=== PATIENT | male | born 1980 | race Caucasian/White ===

== ENCOUNTER → 2017-09-01 16:12 | Outpatient (CLI) | payer OTHER, SELFPAY ==
[2017-09-01 17:30] LABS: Absolute Lymphocyte Count 0.92 X10^3/ul (0.83-4.51); Absolute Neutrophil Count 18.9 X10^3/uL (2.0-7.7); Basophil# 0.03 X10^3/uL; Basophil% 0.1 % (0-1); Eosinophil# 0.01 X10^3/uL; Hematocrit 45.4 % (40-54); Hemoglobin 15.4 g/dl (13.0-16.5); Lymphocyte # 0.92 X10^3/ul (4.0); Lymphocyte % 4.4 % (19-41); Mean Corp Hgb Conc 33.9 g/gl (32-36); Mean Corpuscular Hgb 30.7 pg (27.0-32.0); Mean Corpuscular Volume 90.4 fL (80-94); Mean Platelet Vol. 9.9 fl (6.2-12.0); Monocyte% 5.7 % (0-10); Neutrophil # 18.89 X10^3/uL (2.7-7.7); Neutrophil % 89.5 % (47-70); Platelet Count 354 K/mm3 (150-450); RBC Distribution Width CV 14.1 % (11.6-14.6); RBC Distribution Width SD 46.2 fl (35.1-43.9); Red Blood Count 5.02 M/mm3 (4.6-6.2); White Blood Count 21.1 K/mm3 (4.4-11.0)
[2017-09-01 17:33] LABS: POSITIVE COUNT NO; POSITIVE DIFFERENTIAL NO; POSITIVE MORPHOLOGY NO
[2017-09-01 17:42] LABS: AST(SGOT) 16 U/L (15-37); Alanine Aminotransfer ALT/SGPT 27 U/L (16-61); Albumin, Serum 3.8 g/dL (3.2-5.0); Alkaline Phosphatase 74 U/L (45-117); Anion Gap 10 (5-15); BUN 14 mg/dL (7-18); BUN/Creat Ratio 10.9 RATIO (10-20); Calcium,Total 8.6 mg/dL (8.5-10.1); Chloride 104 mmol/L (98-107); Creatinine, Serum 1.28 mg/dL (0.70-1.30); EST Glomerular Filtration Rate 67 mL/min (>60); Est Glom Filt Rate - Afr Amer 81 mL/min (>60); Globulin 3.7 g/dL (2.2-4.2); Glucose 289 mg/dL (74-106); Potassium 4.4 mmol/L (3.5-5.1); Protein, Total 7.5 g/dL (6.4-8.2); Sodium Level 139 mmol/L (136-145)
== END ==
PROVIDERS: Family Provider Family Medicine; PCP Family Medicine; Visit Provider Family Medicine
DX: K52.9 Noninfective gastroenteritis and colitis, unspecified (principal)
CPT/HCPCS: 36415; 80053; 85025

== ENCOUNTER → 2017-09-11 09:48 | Outpatient (CLI) | payer OTHER, SELFPAY ==
[2017-09-11 12:31] LABS: Absolute Neutrophil Count 7.1 X10^3/uL (2.0-7.7); Basophil# 0.04 X10^3/uL; Basophil% 0.4 % (0-1); Eosinophil# 0.13 X10^3/uL; Eosinophils% 1.3 % (0-5); Hematocrit 44.3 % (40-54); Hemoglobin 14.7 g/dl (13.0-16.5); Lymphocyte % 17.4 % (19-41); Mean Corp Hgb Conc 33.2 g/gl (32-36); Mean Corpuscular Volume 90.4 fL (80-94); Mean Platelet Vol. 9.5 fl (6.2-12.0); Monocyte# 0.77 X10^3/uL; Monocyte% 7.9 % (0-10); Neutrophil # 7.05 X10^3/uL (2.7-7.7); Neutrophil % 72.4 % (47-70); Platelet Count 358 K/mm3 (150-450); RBC Distribution Width CV 14.4 % (11.6-14.6); RBC Distribution Width SD 47.3 fl (35.1-43.9); White Blood Count 9.8 K/mm3 (4.4-11.0)
[2017-09-11 12:32] LABS: POSITIVE COUNT NO; POSITIVE DIFFERENTIAL NO; POSITIVE MORPHOLOGY NO
[2017-09-11 12:55] LABS: Thyroid Stim Hormone (TSH) 1.65 uIU/mL (0.358-3.74)
== END ==
PROVIDERS: Family Provider Family Medicine; PCP Family Medicine; Visit Provider Family Medicine
DX: R00.0 Tachycardia, unspecified (principal); D72.829 Elevated white blood cell count, unspecified
CPT/HCPCS: 36415; 84443; 85025

== ENCOUNTER 2019-03-11 09:38 | Emergency (ER) | payer MEDICARE, SELFPAY ==
[2019-03-11 09:39] VITALS: BP 160/89; PULSE 100; RESP 17; TEMP 36.4; O2SAT 98; BMI 34.7
--- NOTE | 2019-03-11 10:06 | RAD_ITS ---
STUDY: X-RAY CHEST REASON FOR EXAM: Male, 38 years old. Each cough. TECHNIQUE: Frontal and lateral views of the chest. COMPARISON: October 02, 2016 FINDINGS: The lungs are clear and expanded. There is no demonstrated pleural abnormality. Normal size heart. Normal mediastinum and tamara. Normal visualized pulmonary arteries. Normal visualized aortic arch and descending thoracic aorta. Normal visualized thoracic spine. Normal visualized ribs, clavicles, and shoulders. There is no demonstrated abnormality of the visualized soft tissue structures of the upper abdomen. RAD/Chest PA and Lateral IMPRESSION: No interval change and no acute finding. Electronically Signed: Valeriano Marin MD at 11:22 EDT , Service support ,
--- NOTE | 2019-03-11 10:06 | ED.DCSUM_ITS ---
History of Present Illness Chief Complaint: Abd Pain Informant: Patient Onset: Days - 3-4 Context: Gradual Onset Timing: Continuous Quality: sore Location: inguinal creases Current Severity: Mild Maximum Severity: Mild Worsened by: palpation Relieved by: nothing; spreading antibiotic ointment Associated Symptoms: fever today, 101 Narrative: Patient is a well-controlled type I diabetic, whose A1c is consistently less than 6%. He states his sugars have been well controlled while this is been going on, started with dry skin in his inguinal creases, followed by the skin splitting and creating minor sores. He was spreading ointment on them to try to prevent infection. He has had a couple of small pustular or papular lesions on his medial buttocks, but no perineal pain. He has had some perianal discomfort. No pain with having bowel movements, but is sore to wipe in the surrounding area. He became concerned when he developed a fever this morning. He denies having any abdominal or pelvic pain, he has a mild nonproductive cough without dyspnea. He has no other medical problems. - Past Medical History (1) Type 1 diabetes mellitus Status: Chronic Past Medical History - Allergies and Home Meds Allergies/Adverse Reactions: Allergies No Known Allergies Allergy (Verified 03/11/19 09:39) Primary Care Physician: Baryan Ferrer MD [Primary Care Provider] - Lives: Spouse/ Significant Other Smoking Status: Unknown if ever smoked Drugs: None Review of Systems General: Reports: Fever, Malaise. Denies: Chills, Sweats Eyes: Denies: Visual changes - bilaterally, Diplopia ENT: Denies: Rhinorrhea, Sore throat Cardiovascular: Denies: Chest pain, Palpitations Respiratory: Denies: Dyspnea, Cough, Dyspnea on exertion Gastrointestinal: Denies: Abdominal pain, Nausea, Vomiting, Diarrhea, Melena, Hematochezia Genitourinary: Denies: Dysuria, Hematuria, Frequency Musculoskeletal: Denies: Back pain, Extremity Pain Skin: Reports: Rash, Wounds Neurological: Denies: Headache, Weakness, Numbness Physical Exam Vital Signs/Narrative: Vital Signs Temp Pulse Resp BP Pulse Ox 03/11/19 09:39 97.5 F L 100 17 160/89 H 98 Inital Vital Signs reviewed: Yes General: Well nourished, Well developed, No Acute Distress - Well-appearing, c onversive, pleasant Head: Normocephalic, Atraumatic Eyes: Perrl, EOMI ENT: Moist mucous membranes, No rhinorrhea Neck: Supple, Nontender Cardiovascular: Regular rate, Regular rhythm, No murmurs. Negative for: Tachycardia Respiratory: No distress, CTA bilaterally, Chest nontender Abdomen: Soft, Nontender, Nondistended, Normal bowel sounds : - - Normal nontender scrotum and perineum without subcutaneous emphysema, erythema, tenderness Back: Nontender, Normal Inspection Extremities: Nontender, No edema Skin: Normal color, Rash - Erythematous mildly tender rash with satellite lesions in the perianal area, with approximately 4-5 cm radius. Dry skin in bilateral inguinal creases with several small open ulcerations/sores, no purulent discharge or erythema. Neurological: Alert, Oriented x3, Cranial nerves II-XII grossly intact, Normal Strength, Normal Sensation Psychological: Normal affect, Normal Mood Diagnostic/Tx/Re-eval Impressions Chest X-Ray 03/11/19 10:06 IMPRESSION: No interval change and no acute finding. Electronically Signed: Valeriano Marin MD at 11:22 EDT , Service support , 03/11/19 10:06 Chest PA and Lateral [RAD] Stat Laboratory Results 03/11/19 03/11/19 03/11/19 10:13 10:20 10:20 WBC 13.5 H RBC 4.59 L Hgb 14.0 Hct 42.6 MCV 92.8 MCH 30.5 MCHC 32.9 RDW Std Deviation 44.4 H RDW Coeff of Fatmata 13.0 Plt Count 280 MPV 8.8 Immature Gran % (Auto) 0.400 Neut % (Auto) 79.9 H Lymph % (Auto) 8.8 L [place] % (Auto) 9.4 Eos % (Auto) 1.1 Baso % (Auto) 0.4 Absolute Neuts (auto) 10.8 H Absolute Lymphs (auto) 1.18 Nucleated RBC % 0 Sodium 141 Potassium 3.8 Chloride 109 H Carbon Dioxide 28.0 Anion Gap 4 L BUN 10 Creatinine 0.98 Estim Creat Clear Calc 102.20 Est GFR (MDRD) Af Amer 110 Est GFR (MDRD) Non-Af 91 BUN/Creatinine Ratio 10.2 Glucose 126 H Calcium 8.6 Urine Color Yellow Urine Clarity Clear Urine pH 6.0 Ur Specific Rodney 1.010 Urine Protein Negative Urine Glucose (UA) Normal Urine Ketones Negative Urine Occult Blood Negative Urine Nitrite Negative Urine Bilirubin Negative Urine Urobilinogen Normal Ur Leukocyte Esterase Negative Urine RBC 0 SEEN Urine WBC 0 SEEN Ur Squamous Epith Cells 0 SEEN Urine Bacteria 0 SEEN Urine Mucus 0 SEEN - Medical Decision Making Chest x-ray unremarkable, mild leukocytosis but labs are otherwise unremarkable. Given his exam, all of these lesions appeared to be superficial on the skin. There is no findings of Don's here, there is no scrotal involvement or abnormality. His abdomen is very benign and he has no intra-abdominal or rectal symptoms so I do not think he needs a CT or advanced imaging of any sort at this time. However, although he does appear to have candidiasis around the perianal area, this should not be enough to cause fevers. He was given a dose of empiric vancomycin given that he is a diabetic and may be developing some type of bacterial skin infection, and will be prescribed oral Keflex in addition to topical yeast treatment. I encouraged outpatient follow-up but I think he is stable for discharge home, he is well-appearing and comfortable with that plan. ED Disposition - Plan for ED Patient: Disposition: Home or Assisted Living Diagnosis: Skin ulcer of groin, Perianal candidiasis, Type 1 diabetes mellitus Instructions: RASHMI SKIN INFECTION (Adult) Prescriptions: Clotrimazole [Antifungal] 1 applicatio TP BID PRN 14 Days #1 cream..g. PRN Reason: Rash/Topical Irritation Prescription Printed Cephalexin [Keflex] 500 mg PO Q8 #30 cap Prescription Printed Referrals: Brayan Ferrer MD [Primary Care Provider] - 3-5 Days Additional Instructions: Also apply antibiotic ointment to superficially open areas in your groins bilaterally.
[2019-03-11 10:18] LABS: Bacteria 0 SEEN /hpf (None Seen); Mucous, Urine 0 SEEN /hpf (<or=2+); Red Blood Cells-Urine 0 SEEN /hpf (0-5); Squamous Epithelial Cells - UA 0 SEEN /hpf (0-5); White Blood Cells 0 SEEN /hpf (0-5)
[2019-03-11 10:20] LABS: Color, Urine Yellow (Yellow); Glucose, Dipstick Normal (Normal); Ketone-Dipstick Negative (Negative); Leukocyte Esterase-Dipstick Negative /ul (Negative); Nitrite-Dipstick Negative (Negative); Occult Blood-Urine Negative /ul (Negative); Protein-Dipstick Negative (Negative); Urine Bilirubin Dipstick Negative (Negative); Urine Clarity Clear (Clear); Urine Urobilinogen Normal (Normal)
[2019-03-11 10:40] LABS: Absolute Lymphocyte Count 1.18 X10^3/uL (0.83-4.51); Absolute Neutrophil Count 10.8 X10^3/uL (2.0-7.7); Basophil# 0.05 X10^3/uL; Basophil% 0.4 % (0-1); Eosinophil# 0.15 X10^3/uL; Eosinophils% 1.1 % (0-5); Hematocrit 42.6 % (40-54); Lymphocyte # 1.18 X10^3/ul (4.0); Lymphocyte % 8.8 % (19-41); Mean Corp Hgb Conc 32.9 g/dL (32-36); Mean Corpuscular Hgb 30.5 pg (27.0-32.0); Mean Corpuscular Volume 92.8 fL (80-94); Mean Platelet Vol. 8.8 fl (6.2-12.0); Monocyte# 1.27 X10^3/uL; Monocyte% 9.4 % (0-10); NRBC Flagged by Analyzer 0 % (0-5); Neutrophil # 10.76 X10^3/uL (2.7-7.7); Neutrophil % 79.9 % (47-70); Platelet Count 280 K/mm3 (150-450); RBC Distribution Width SD 44.4 fl (35.1-43.9); Red Blood Count 4.59 M/mm3 (4.6-6.2); White Blood Count 13.5 K/mm3 (4.4-11.0)
[2019-03-11 10:54] LABS: Anion Gap 4 (5-15); BUN 10 mg/dL (7-18); BUN/Creat Ratio 10.2 RATIO (10-20); Calcium,Total 8.6 mg/dL (8.5-10.1); Chloride 109 mmol/L (98-107); Creatinine, Serum 0.98 mg/dL (0.70-1.30); EST Glomerular Filtration Rate 91 mL/min (>60); Est Glom Filt Rate - Afr Amer 110 mL/min (>60); Glucose 126 mg/dL (74-106); Potassium 3.8 mmol/L (3.5-5.1); Sodium Level 141 mmol/L (136-145)
[2019-03-11 13:47] VITALS: BP 129/84; PULSE 81; RESP 16; O2SAT 100
[2019-03-11 15:26] VITALS: BP 128/78; PULSE 87; RESP 15; O2SAT 98
== END 2019-03-11 15:30 | disposition home or self-care (01) ==
PROVIDERS: Emergency Provider Emergency Medicine; Family Provider Family Medicine; PCP Family Medicine
DX: L98.499 Non-pressure chronic ulcer of skin of other sites with unspecified severity (principal); B37.89 Other sites of candidiasis; E10.9 Type 1 diabetes mellitus without complications; Z79.4 Long term (current) use of insulin
CPT/HCPCS: 71046; 80048; 81001; 85025; 87040; 96365; 96366; 99285; J7030; J7040; J7050; A4216

== ENCOUNTER → 2019-07-19 08:09 | Outpatient (CLI) | payer OTHER, SELFPAY ==
[2019-07-19 11:06] LABS: Anion Gap 5 (5-15); BUN 19 mg/dL (7-18); BUN/Creat Ratio 18.6 RATIO (10-20); Chloride 109 mmol/L (98-107); Cholesterol 157 mg/dL (200); Creatinine, Serum 1.02 mg/dL (0.70-1.30); EST Glomerular Filtration Rate 86 mL/min (>60); Est Glom Filt Rate - Afr Amer 104 mL/min (>60); Glucose 154 mg/dL (74-106); High Density Lipoprotein 42 mg/dL; Potassium 3.7 mmol/L (3.5-5.1); Sodium Level 140 mmol/L (136-145); Triglycerides 110 mg/dL; Very Low Density Lipoprotein 22 mg/dL (5-40); Vitamin D,25 Hydroxy 16.1 ng/mL (29.95-100.01)
[2019-07-19 11:41] LABS: Microalbumin,Random Urine 5.2 mg/L (NO RANGE EST.)
== END ==
PROVIDERS: Family Provider Family Medicine; PCP Family Medicine; Referring Provider Family Medicine; Visit Provider Family Medicine
DX: Z00.00 Encounter for general adult medical examination without abnormal findings (principal)
CPT/HCPCS: 36415; 80048; 80061; 82043; 82306; 82570

== ENCOUNTER → 2020-07-30 08:29 | Outpatient (CLI) | payer BC, SELFPAY ==
[2020-07-30 10:36] LABS: Vitamin D,25 Hydroxy 24.7 ng/mL
[2020-07-30 10:37] LABS: Anion Gap 6 (5-15); BUN 17 mg/dL (7-18); Chloride 107 mmol/L (98-107); Cholesterol 168 mg/dL (200); EST Glomerular Filtration Rate 88 mL/min (>60); Est Glom Filt Rate - Afr Amer 106 mL/min (>60); Glucose 130 mg/dL (74-106); High Density Lipoprotein 43 mg/dL; Potassium 4.3 mmol/L (3.5-5.1); Sodium Level 138 mmol/L (136-145); Triglycerides 88 mg/dL; Very Low Density Lipoprotein 18 mg/dL (5-40)
== END ==
PROVIDERS: PCP Family Medicine; Referring Provider Family Medicine; Visit Provider Family Medicine
DX: E10.9 Type 1 diabetes mellitus without complications (principal); E55.9 Vitamin D deficiency, unspecified
CPT/HCPCS: 36415; 80048; 80061; 82306

== ENCOUNTER → 2022-10-18 | Outpatient (CLI) | payer SELFPAY ==
[2022-10-18 10:28] LABS: Microalbumin,Random Urine 9.2 mg/L (NO RANGE EST.)
[2022-10-18 10:38] LABS: Anion Gap 5 (5-15); BUN 18 mg/dL (7-18); BUN/Creat Ratio 18.8 RATIO (10-20); Calcium,Total 8.9 mg/dL (8.5-10.1); Chloride 107 mmol/L (98-107); Cholesterol 162 mg/dL (200); Creatinine, Serum 0.96 mg/dL (0.70-1.30); EST Glomerular Filtration Rate 92 mL/min (>60); Est Glom Filt Rate - Afr Amer 111 mL/min (>60); Glucose 146 mg/dL (74-106); High Density Lipoprotein 48 mg/dL; Sodium Level 137 mmol/L (136-145); Triglycerides 54 mg/dL; Very Low Density Lipoprotein 11 mg/dL (5-40)
== END | disposition home or self-care (01) ==
PROVIDERS: PCP Family Medicine; Referring Provider Family Medicine; Visit Provider Family Medicine
DX: E10.9 Type 1 diabetes mellitus without complications (principal)
CPT/HCPCS: 36415; 80048; 80061; 82043

== ENCOUNTER → 2024-05-20 | Outpatient (CLI) | payer OTHER, SELFPAY ==
[2024-05-20 10:47] LABS: ALB/GLOB Ratio 0.9 RATIO (0.9-2.4); AST(SGOT) 18 U/L (15-37); Alanine Aminotransfer ALT/SGPT 33 U/L (16-61); Albumin, Serum 3.6 g/dL (3.2-5.0); Alkaline Phosphatase 71 U/L (45-117); Anion Gap 7 (5-15); BUN 18 mg/dL (7-18); BUN/Creat Ratio 17.5 RATIO (10-20); Calcium,Total 9.1 mg/dL (8.5-10.1); Chloride 109 mmol/L (98-107); Cholesterol 163 mg/dL (200); Creatinine, Serum 1.03 mg/dL (0.70-1.30); EST Glomerular Filtration Rate 83 mL/min (>60); Est Glom Filt Rate - Afr Amer 101 mL/min (>60); Globulin 3.8 g/dL (2.2-4.2); Glucose 89 mg/dL (74-106); High Density Lipoprotein 48 mg/dL; Potassium 3.9 mmol/L (3.5-5.1); Protein, Total 7.4 g/dL (6.4-8.2); Sodium Level 141 mmol/L (136-145); Triglycerides 60 mg/dL; Very Low Density Lipoprotein 12 mg/dL (5-40)
== END | disposition home or self-care (01) ==
PROVIDERS: PCP Family Medicine; Visit Provider Family Medicine
DX: E11.9 Type 2 diabetes mellitus without complications (principal)
CPT/HCPCS: 36415; 80053; 80061